=== PATIENT | female | born 1965 | race African-American/Black ===

== ENCOUNTER 2019-07-26 05:17 | Emergency (ER) | payer OTHER ==
[~2019-07-26] VITALS: Ht 170.2 cm; Wt 100.0 kg
[2019-07-26] MEDS ORDERED: SODIUM CHLORIDE 0.9% 1,000 ML IV ONE (07:05)
[2019-07-26] MEDS ORDERED: MORPHINE SULFATE 4 MG/ML CPJ (NOT FOR IM USE) IV STA (07:05)
[2019-07-26] MEDS ORDERED: ONDANSETRON HCL 4MG/2ML INJ IV STA (07:05)
[2019-07-26 07:54] LABS: BASOPHILS % 0.8 % (0.0-2.0); EOSINOPHILS % 0.9 % (0.0-5.0); HEMATOCRIT. 38.8 % (36.0-48.0); LYMPHOCYTES % 22.8 % (20.0-50.0); MEAN CORPUSCULAR HEMOGLOBIN 22.8 pg (28.0-32.0); MEAN CORPUSCULAR VOLUME 68.3 fL (81.0-99.0); MEAN PLATELET VOLUME 9.7 fl (7.4-10.4); MONOCYTES % 5.6 % (2.0-8.0); NEUTROPHILS % 69.9 % (40.0-76.0); PLATELET 194 x1000/uL (130-400); RED BLOOD CELL COUNT 5.68 mill/uL (4.2-5.4)
[2019-07-26 07:58] LABS: CHLORIDE 108 mEq/L (98-107)
[2019-07-26 08:45] LABS: PLATELET ESTIMATE NORMAL
[2019-07-26] MEDS ORDERED: PIPERACILLIN/TAZOBACTAM 3.375GM/50ML PREMIX IV NR (11:11)
[2019-07-26] MEDS ORDERED: MORPHINE SULFATE 4 MG/ML CPJ (NOT FOR IM USE) IV NR (11:11)
[2019-07-26 11:47] LABS: CLARITY URINE CLEAR (CLEAR); COLOR URINE YELLOW (YELLOW); KETONES URINE NEGATIVE (NEGATIVE); LEUKOCYTE ESTERASE URINE NEGATIVE (NEGATIVE); NITRITE URINE NEGATIVE (NEGATIVE); OCCULT BLOOD URINE NEGATIVE (NEGATIVE); PROTEIN URINE TRACE (NEGATIVE); SPECIFIC GRAVITY URINE 1.013 (1.005-1.030); UROBILINOGEN URINE 0.2 E.U./dL (0.2-1.0)
[2019-07-26 15:11] VITALS: BP 134/71
== END 2019-07-26 15:20 | disposition short-term general hospital (02) ==
LOC: ER 05:17 → CANRESERV 11:19 → ENRESERV 11:19 → CANBEDREQ 15:05 → ER 15:20
DX: K57.92 Diverticulitis of intestine, part unspecified, without perforation or abscess without bleeding (principal); D57.00 Hb-SS disease with crisis, unspecified; M79.606 Pain in leg, unspecified; R11.2 Nausea with vomiting, unspecified
CPT/HCPCS: 36415; 74176; 80053; 81003; 83690; 84484; 85025; 93005; 96361; 96365; 96375; 96376; 99285; J2270; J2405; J2543; J7030; Z7610

== ENCOUNTER 2020-05-12 22:19 | Emergency (ER) | payer OTHER ==
[~2020-05-12] VITALS: Ht 172.7 cm; Wt 136.0 kg
[2020-05-12] MEDS ORDERED: SODIUM CHLORIDE 0.9% 1,000 ML IV ONE (23:30)
[2020-05-12] MEDS ORDERED: ONDANSETRON HCL 4MG/2ML INJ IV ONE (23:45)
[2020-05-12] MEDS ORDERED: MORPHINE SULFATE 10 MG/ML CPJ IV ONE (23:45)
[2020-05-13 00:19] LABS: CHLORIDE 106 mEq/L (98-107); PROTHROMBIN TIME 10.3 sec (9.6-11.0)
[2020-05-13 00:21] LABS: CLARITY URINE CLEAR (CLEAR); COLOR URINE YELLOW (YELLOW); KETONES URINE NEGATIVE (NEGATIVE); LEUKOCYTE ESTERASE URINE NEGATIVE (NEGATIVE); NITRITE URINE NEGATIVE (NEGATIVE); OCCULT BLOOD URINE NEGATIVE (NEGATIVE); PROTEIN URINE NEGATIVE (NEGATIVE); SPECIFIC GRAVITY URINE 1.012 (1.005-1.030); UROBILINOGEN URINE 0.2 E.U./dL (0.2-1.0)
[2020-05-13 00:23] LABS: BASOPHILS % 0.5 % (0.0-2.0); EOSINOPHILS % 1.6 % (0.0-5.0); HEMATOCRIT. 33.1 % (36.0-48.0); HEMOGLOBIN. 11.2 g/dL (12.0-16.0); LYMPHOCYTES % 38.8 % (20.0-50.0); MEAN CORPUSCULAR HEMOGLOBIN 25.2 pg (28.0-32.0); MEAN CORPUSCULAR VOLUME 74.4 fL (81.0-99.0); MEAN PLATELET VOLUME 9.6 fl (7.4-10.4); MONOCYTES % 7.9 % (2.0-8.0); NEUTROPHILS % 51.2 % (40.0-76.0); PLATELET 137 x1000/uL (130-400); RED BLOOD CELL COUNT 4.45 mill/uL (4.2-5.4)
[2020-05-13 00:25] LABS: ETHANOL BLOOD < 10 mg/dL
[2020-05-13 00:29] LABS: CREATINE KINASE 81 IU/L (26-192)
[2020-05-13] MEDS ORDERED: KETOROLAC 30MG/ML VIAL IV ONE (01:30)
[2020-05-13 02:20] VITALS: BP 144/76
== END 2020-05-13 02:23 | disposition home or self-care (01) ==
LOC: ER 22:19
DX: D57.00 Hb-SS disease with crisis, unspecified (principal); M79.18 Myalgia, other site; R03.0 Elevated blood-pressure reading, without diagnosis of hypertension; H91.90 Unspecified hearing loss, unspecified ear
CPT/HCPCS: 36415; 71045; 80053; 80320; 81003; 82550; 83690; 83880; 84484; 85025; 85044; 85610; 86850; 86900; 86901; 93005; 96374; 96375; 99285; J1885; J2270; J2405; J7030; G0480

== ENCOUNTER 2020-06-09 22:09 | Emergency (ER) | payer OTHER ==
[~2020-06-09] VITALS: Ht 167.6 cm; Wt 100.0 kg
[2020-06-09 22:19] VITALS: BP 140/90
[2020-06-10] MEDS ORDERED: HYDROCODONE/ACETAMINOPHEN 5/325MG TABLET PO STA (01:30)
[2020-06-10] MEDS ORDERED: KETOROLAC 60MG/2ML VIAL IM STA (01:30)
== END 2020-06-10 02:56 | disposition home or self-care (01) ==
LOC: ER 22:09
DX: M79.18 Myalgia, other site (principal); I10 Essential (primary) hypertension; D57.1 Sickle-cell disease without crisis
CPT/HCPCS: 93005; 96372; 99283; J1885

== ENCOUNTER 2020-10-22 00:31 | Emergency (ER) | payer OTHER ==
[~2020-10-22] VITALS: Ht 172.7 cm; Wt 127.0 kg
[2020-10-22] MEDS ORDERED: KETOROLAC 30MG/ML VIAL IV STA ×2 (02:06→04:58)
[2020-10-22] MEDS ORDERED: SODIUM CHLORIDE 0.9% 1,000 ML IV ONE ×2 (02:15→03:15)
[2020-10-22 02:28] LABS: BASOPHILS % 0.3 % (0.0-2.0); EOSINOPHILS % 3.7 % (0.0-5.0); HEMOGLOBIN. 11.9 g/dL (12.0-16.0); LYMPHOCYTES % 39.1 % (20.0-50.0); MEAN CORPUSCULAR HEMOGLOBIN 25.1 pg (28.0-32.0); MEAN CORPUSCULAR VOLUME 76.4 fL (81.0-99.0); MEAN PLATELET VOLUME 10.1 fl (7.4-10.4); NEUTROPHILS % 50.9 % (40.0-76.0); PLATELET 151 x1000/uL (130-400); RED BLOOD CELL COUNT 4.72 mill/uL (4.2-5.4); RED CELL DISTRIBUTION WIDTH 15.8 % (11.6-14.6)
[2020-10-22 02:33] LABS: CHLORIDE 102 mEq/L (98-107)
[2020-10-22 02:36] LABS: ETHANOL BLOOD < 10 mg/dL
[2020-10-22 02:37] LABS: PROTHROMBIN TIME 10.7 sec (9.6-11.0)
[2020-10-22] MEDS ORDERED: MORPHINE SULFATE 4 MG/ML CPJ (NOT FOR IM USE) IV STA (03:08)
[2020-10-22 04:01] LABS: CLARITY URINE CLEAR (CLEAR); COLOR URINE YELLOW (YELLOW); KETONES URINE NEGATIVE (NEGATIVE); LEUKOCYTE ESTERASE URINE NEGATIVE (NEGATIVE); NITRITE URINE NEGATIVE (NEGATIVE); OCCULT BLOOD URINE NEGATIVE (NEGATIVE); PH URINE 6.5 (4.5-8.0); PROTEIN URINE NEGATIVE (NEGATIVE)
[2020-10-22 04:10] LABS: *AMPHETAMINES SCREEN URINE NEGATIVE (NEGATIVE); *BARBITURATES SCREEN URINE NEGATIVE (NEGATIVE); *BENZODIAZEPINES SCREEN URINE NEGATIVE (NEGATIVE); *COCAINE SCREEN URINE NEGATIVE (NEGATIVE); METHADONE URINE SCREEN NEGATIVE (NEGATIVE)
[2020-10-22 04:11] LABS: CANNABINOID URINE SCREEN NEGATIVE (NEGATIVE); OPIATES URINE SCREEN PRESUMTIVE POSITIVE (NEGATIVE); PHENCYCLIDINE URINE SCREEN NEGATIVE (NEGATIVE)
[2020-10-22] MEDS ORDERED: HYDR-4346 PO (04:24)
[2020-10-22] MEDS ORDERED: NAPR-681 PO (04:24)
[2020-10-22 05:11] VITALS: BP 123/77
== END 2020-10-22 05:22 | disposition home or self-care (01) ==
LOC: ER 00:31
DX: M60.9 Myositis, unspecified (principal); D57.1 Sickle-cell disease without crisis; I10 Essential (primary) hypertension
CPT/HCPCS: 36415; 71045; 80053; 80305; 80320; 81003; 85025; 85044; 85610; 93005; 96374; 96375; 96376; 99285; J1885; J2270; J7030; Z7610; G0480

== ENCOUNTER 2021-03-08 00:28 | Emergency (ER) | payer OTHER ==
[~2021-03-08] VITALS: Ht 170.2 cm; Wt 78.0 kg
[~2021-03-08 00:28] MED LIST: HYDR-4346 PO; NAPR-681 PO
[2021-03-08] MEDS ORDERED: ONDANSETRON HCL 4MG/2ML INJ IV STA (01:40)
[2021-03-08] MEDS ORDERED: MORPHINE SULFATE 4 MG/ML CPJ (NOT FOR IM USE) IV STA (01:40)
[2021-03-08] MEDS ORDERED: SODIUM CHLORIDE 0.9% 1,000 ML IV ONE (01:45)
[2021-03-08 02:17] LABS: BASOPHILS % 0.7 % (0.0-2.0); EOSINOPHILS % 3.2 % (0.0-5.0); HEMATOCRIT. 32.6 % (36.0-48.0); HEMOGLOBIN. 10.8 g/dL (12.0-16.0); LYMPHOCYTES % 39.9 % (20.0-50.0); MEAN CORPUSCULAR VOLUME 75.1 fL (81.0-99.0); MEAN PLATELET VOLUME 9.4 fl (7.4-10.4); MONOCYTES % 6.1 % (2.0-8.0); NEUTROPHILS % 50.1 % (40.0-76.0); PLATELET 171 x1000/uL (130-400); RED BLOOD CELL COUNT 4.34 mill/uL (4.2-5.4); RED CELL DISTRIBUTION WIDTH 15.8 % (11.6-14.6)
[2021-03-08 02:21] LABS: CHLORIDE 109 mEq/L (98-107)
[2021-03-08 02:24] LABS: ETHANOL BLOOD < 10 mg/dL
[2021-03-08] MEDS ORDERED: DIPHENHYDRAMINE 50MG/ML VIAL IV ONE (03:15)
[2021-03-08] MEDS ORDERED: FENTANYL CITRATE/PF 50MCG/ML 2ML VIAL IV ONE (03:15)
[2021-03-08 03:30] LABS: CLARITY URINE CLEAR (CLEAR); COLOR URINE YELLOW (YELLOW); KETONES URINE NEGATIVE (NEGATIVE); LEUKOCYTE ESTERASE URINE NEGATIVE (NEGATIVE); NITRITE URINE NEGATIVE (NEGATIVE); OCCULT BLOOD URINE NEGATIVE (NEGATIVE); PH URINE 7.5 (4.5-8.0); PROTEIN URINE NEGATIVE (NEGATIVE); SPECIFIC GRAVITY URINE 1.007 (1.005-1.030); UROBILINOGEN URINE 0.2 E.U./dL (0.2-1.0)
[2021-03-08 04:27] LABS: METHADONE URINE SCREEN NEGATIVE (NEGATIVE); OPIATES URINE SCREEN NEGATIVE (NEGATIVE)
[2021-03-08 04:28] LABS: *AMPHETAMINES SCREEN URINE NEGATIVE (NEGATIVE); *BARBITURATES SCREEN URINE NEGATIVE (NEGATIVE); *BENZODIAZEPINES SCREEN URINE NEGATIVE (NEGATIVE); *COCAINE SCREEN URINE NEGATIVE (NEGATIVE); CANNABINOID URINE SCREEN NEGATIVE (NEGATIVE); PHENCYCLIDINE URINE SCREEN NEGATIVE (NEGATIVE)
[2021-03-08 05:23] VITALS: BP 111/71
== END 2021-03-08 06:00 | disposition home or self-care (01) ==
LOC: ER 00:28
DX: D57.00 Hb-SS disease with crisis, unspecified (principal); E11.9 Type 2 diabetes mellitus without complications; I10 Essential (primary) hypertension; Z91.041 Radiographic dye allergy status
CPT/HCPCS: 36415; 71045; 80053; 80305; 80320; 81003; 83605; 84484; 85025; 85044; 86850; 86900; 86901; 87040; 93005; 96361; 96374; 96375; 99285; J1200; J2270; J2405; J3010; J7030; G0480

== ENCOUNTER 2021-04-06 23:51 | Emergency (ER) | payer OTHER ==
[~2021-04-06] VITALS: Ht 170.2 cm; Wt 100.0 kg
[2021-04-07] VITALS: BP 159/84
[2021-04-07] MEDS ORDERED: ONDANSETRON HCL 4MG/2ML INJ IV STA (02:13)
[2021-04-07 03:00] LABS: CLARITY URINE CLEAR (CLEAR); COLOR URINE YELLOW (YELLOW); KETONES URINE NEGATIVE (NEGATIVE); LEUKOCYTE ESTERASE URINE NEGATIVE (NEGATIVE); NITRITE URINE NEGATIVE (NEGATIVE); OCCULT BLOOD URINE NEGATIVE (NEGATIVE); PH URINE 5.5 (4.5-8.0); PROTEIN URINE NEGATIVE (NEGATIVE)
[2021-04-07 03:09] LABS: CHLORIDE 108 mEq/L (98-107)
[2021-04-07 03:11] LABS: BASOPHILS % 0.9 % (0.0-2.0); EOSINOPHILS % 1.6 % (0.0-5.0); HEMATOCRIT. 35.1 % (36.0-48.0); HEMOGLOBIN. 11.9 g/dL (12.0-16.0); LYMPHOCYTES % 40.8 % (20.0-50.0); MEAN CORPUSCULAR HEMOGLOBIN 25.1 pg (28.0-32.0); MEAN PLATELET VOLUME 9.4 fl (7.4-10.4); MONOCYTES % 4.9 % (2.0-8.0); NEUTROPHILS % 51.8 % (40.0-76.0); PLATELET 163 x1000/uL (130-400); RED BLOOD CELL COUNT 4.73 mill/uL (4.2-5.4); RED CELL DISTRIBUTION WIDTH 15.9 % (11.6-14.6)
[2021-04-07 03:13] LABS: ETHANOL BLOOD < 10 mg/dL
== END 2021-04-07 04:10 | disposition home or self-care (01) ==
LOC: ER 23:51
DX: M79.18 Myalgia, other site (principal); R11.2 Nausea with vomiting, unspecified; F32.9 Major depressive disorder, single episode, unspecified; E11.9 Type 2 diabetes mellitus without complications; Z88.5 Allergy status to narcotic agent
CPT/HCPCS: 36415; 71045; 80053; 80320; 81003; 83690; 84484; 85025; 85044; 96374; 99284; J2405; G0480

== ENCOUNTER 2021-09-14 00:28 | Emergency (ER) | payer OTHER ==
[~2021-09-14] VITALS: Ht 170.2 cm; Wt 105.0 kg
[~2021-09-14 00:28] MED LIST changes: +ABIL10 PO; +AMLO10TA4 PO; +DULO60CA64 PO; +FERR-71 PO; +GABA-532 PO; +HYDR500C18 PO; +METF-416 PO; +TRAZ-252 PO
[2021-09-14] MEDS ORDERED: SODIUM CHLORIDE 0.9% 1,000 ML IV ONE (01:30)
[2021-09-14] MEDS ORDERED: DIPHENHYDRAMINE 50MG/ML VIAL IV ONE (01:30)
[2021-09-14] MEDS ORDERED: MORPHINE SULFATE 4 MG/ML CPJ (NOT FOR IM USE) IV STA (01:30)
[2021-09-14] MEDS ORDERED: ONDANSETRON HCL 4MG/2ML INJ IV ONE (03:15)
[2021-09-14 03:26] LABS: CHLORIDE 108 mEq/L (98-107)
[2021-09-14 03:29] LABS: BASOPHILS % 0.7 % (0.0-2.0); EOSINOPHILS % 2.6 % (0.0-5.0); HEMATOCRIT. 31.8 % (36.0-48.0); HEMOGLOBIN. 10.8 g/dL (12.0-16.0); LYMPHOCYTES % 43.7 % (20.0-50.0); MEAN CORPUSCULAR VOLUME 73.7 fL (81.0-99.0); MEAN PLATELET VOLUME 9.4 fl (7.4-10.4); MONOCYTES % 6.1 % (2.0-8.0); NEUTROPHILS % 46.9 % (40.0-76.0); PLATELET 147 x1000/uL (130-400); RED BLOOD CELL COUNT 4.31 mill/uL (4.2-5.4); RED CELL DISTRIBUTION WIDTH 16.2 % (11.6-14.6)
[2021-09-14 04:05] VITALS: BP 139/87
== END 2021-09-14 05:25 | disposition home or self-care (01) ==
LOC: ER 00:28
DX: D57.09 Hb-SS disease with crisis with other specified complication (principal); M79.605 Pain in left leg; M79.604 Pain in right leg; I10 Essential (primary) hypertension; E11.9 Type 2 diabetes mellitus without complications; Z79.84 Long term (current) use of oral hypoglycemic drugs; Z79.899 Other long term (current) drug therapy
CPT/HCPCS: 36415; 71045; 80053; 85025; 85044; 93005; 96361; 96374; 96375; 99285; J1200; J2270; J2405; J7030

== ENCOUNTER 2021-12-24 01:04 | Emergency (ER) | payer OTHER ==
[~2021-12-24] VITALS: Ht 167.6 cm; Wt 94.0 kg
[2021-12-24] MEDS ORDERED: SODIUM CHLORIDE 0.9% 1,000 ML IV ONE (02:45)
[2021-12-24] MEDS ORDERED: MORPHINE SULFATE 4 MG/ML CPJ (NOT FOR IM USE) IV ONE (02:45)
[2021-12-24] MEDS ORDERED: ACETAMINOPHEN 325MG TABLET PO ONE (02:45)
[2021-12-24] MEDS ORDERED: IBUPROFEN 400MG TABLET PO ONE (02:45)
[2021-12-24 03:07] LABS: BASOPHILS % 0.3 % (0.0-2.0); EOSINOPHILS % 3.3 % (0.0-5.0); HEMATOCRIT. 31.3 % (36.0-48.0); HEMOGLOBIN. 10.4 g/dL (12.0-16.0); LYMPHOCYTES % 36.9 % (20.0-50.0); MEAN CORPUSCULAR HEMOGLOBIN 24.3 pg (28.0-32.0); MEAN PLATELET VOLUME 9.3 fl (7.4-10.4); MONOCYTES % 6.3 % (2.0-8.0); NEUTROPHILS % 53.2 % (40.0-76.0); PLATELET 155 x1000/uL (130-400); RED BLOOD CELL COUNT 4.28 mill/uL (4.2-5.4); RED CELL DISTRIBUTION WIDTH 16.1 % (11.6-14.6)
[2021-12-24 03:16] LABS: CHLORIDE 108 mEq/L (98-107)
[2021-12-24] MEDS ORDERED: ONDANSETRON HCL 4MG/2ML INJ IV ONE (03:30)
[2021-12-24 05:29] LABS: CLARITY URINE CLEAR (CLEAR); COLOR URINE YELLOW (YELLOW); KETONES URINE NEGATIVE (NEGATIVE); LEUKOCYTE ESTERASE URINE NEGATIVE (NEGATIVE); NITRITE URINE NEGATIVE (NEGATIVE); OCCULT BLOOD URINE NEGATIVE (NEGATIVE); PH URINE 5.5 (4.5-8.0); PROTEIN URINE NEGATIVE (NEGATIVE); SPECIFIC GRAVITY URINE 1.007 (1.005-1.030); UROBILINOGEN URINE 0.2 E.U./dL (0.2-1.0)
[2021-12-24] MEDS ORDERED: HYDROCODONE/ACETAMINOPHEN 5/325MG TABLET PO ONE (06:30)
[2021-12-24 15:08] VITALS: BP 141/72
== END 2021-12-25 09:17 | disposition short-term general hospital (02) ==
LOC: ER 01:04 → CANBEDREQ 21:17 → ER 12-25 09:17
DX: D57.00 Hb-SS disease with crisis, unspecified (principal); E11.9 Type 2 diabetes mellitus without complications; I10 Essential (primary) hypertension; Z79.899 Other long term (current) drug therapy; Z20.822 Contact with and (suspected) exposure to COVID-19
CPT/HCPCS: 36415; 71045; 80053; 81003; 83605; 83690; 83880; 84484; 85025; 85044; 87426; 93005; 96361; 96374; 96375; 99285; C9803; J2270; J2405; J7030

== ENCOUNTER 2022-04-12 18:48 | Emergency (ER) | payer OTHER ==
[~2022-04-12] VITALS: Ht 170.2 cm; Wt 127.0 kg
[2022-04-12] MEDS ORDERED: SODIUM CHLORIDE 0.9% 1,000 ML IV ONE (21:30)
[2022-04-12 21:36] LABS: BASOPHILS % 0.3 % (0.0-2.0); EOSINOPHILS % 1.7 % (0.0-5.0); HEMATOCRIT. 34.6 % (36.0-48.0); HEMOGLOBIN. 11.3 g/dL (12.0-16.0); LYMPHOCYTES % 41.5 % (20.0-50.0); MEAN CORPUSCULAR HEMOGLOBIN 26.6 pg (28.0-32.0); MEAN CORPUSCULAR VOLUME 81.6 fL (81.0-99.0); MEAN PLATELET VOLUME 9.2 fl (7.4-10.4); MONOCYTES % 6.9 % (2.0-8.0); NEUTROPHILS % 49.6 % (40.0-76.0); PLATELET 134 x1000/uL (130-400); RED BLOOD CELL COUNT 4.24 mill/uL (4.2-5.4); RED CELL DISTRIBUTION WIDTH 16.5 % (11.6-14.6)
[2022-04-12 21:44] LABS: CHLORIDE 110 mEq/L (98-107)
[2022-04-12 21:59] LABS: HCG SCREEN NEGATIVE
[2022-04-12] MEDS ORDERED: ACETAMINOPHEN 325MG TABLET PO ONE (22:00)
[2022-04-12] MEDS ORDERED: KETOROLAC 15MG/ML VIAL IV ONE ×2 (22:00→23:45)
[2022-04-12] MEDS ORDERED: HYDROMORPHONE HCL/PF 2MG/ML CPJ IV ONE ×2 (22:00→23:45)
[2022-04-12] MEDS ORDERED: DIPHENHYDRAMINE 25MG CAPSULE PO ONE (22:00)
[2022-04-13] MEDS ORDERED: HYDROMORPHONE HCL/PF 2MG/ML CPJ IV NR (03:30)
[2022-04-13] MEDS ORDERED: FENTANYL CITRATE/PF 50MCG/ML 2ML VIAL IV ONE (06:15)
[2022-04-13 11:45] VITALS: BP 151/80
== END 2022-04-13 12:09 | disposition short-term general hospital (02) ==
LOC: ER 18:48
DX: D57.09 Hb-SS disease with crisis with other specified complication (principal); M79.605 Pain in left leg; M79.604 Pain in right leg; I10 Essential (primary) hypertension; E11.9 Type 2 diabetes mellitus without complications; H91.90 Unspecified hearing loss, unspecified ear; Z79.899 Other long term (current) drug therapy; Z79.84 Long term (current) use of oral hypoglycemic drugs
CPT/HCPCS: 36415; 71045; 80053; 84703; 85025; 85044; 93005; 93970; 96361; 96374; 96375; 96376; 99285; J1170; J1885; J3010; J7030; Q0163

== ENCOUNTER 2022-08-13 14:49 | Emergency (ER) | payer OTHER ==
[~2022-08-13] VITALS: Ht 170.2 cm; Wt 122.0 kg
[2022-08-13] MEDS ORDERED: ONDANSETRON HCL 4MG/2ML INJ IV STA (18:22)
[2022-08-13] MEDS ORDERED: KETOROLAC 30MG/ML VIAL IV STA (18:22)
[2022-08-13 18:43] LABS: BASOPHILS % 0.3 % (0.0-2.0); EOSINOPHILS % 0.3 % (0.0-5.0); HEMATOCRIT. 32.8 % (36.0-48.0); LYMPHOCYTES % 31.7 % (20.0-50.0); MEAN CORPUSCULAR VOLUME 77.6 fL (81.0-99.0); MEAN PLATELET VOLUME 8.3 fl (7.4-10.4); MONOCYTES % 6.3 % (2.0-8.0); NEUTROPHILS % 61.4 % (40.0-76.0); PLATELET 198 x1000/uL (130-400); RED BLOOD CELL COUNT 4.23 mill/uL (4.2-5.4); RED CELL DISTRIBUTION WIDTH 16.2 % (11.6-14.6)
[2022-08-13 18:51] LABS: CHLORIDE 106 mEq/L (98-107)
[2022-08-13 19:16] VITALS: BP 110/78
[2022-08-13] MEDS ORDERED: LEVOFLOXACIN 750MG PREMIX 150 ML IV ONE (19:30)
[2022-08-13 20:19] LABS: CLARITY URINE CLEAR (CLEAR); COLOR URINE YELLOW (YELLOW); KETONES URINE NEGATIVE (NEGATIVE); LEUKOCYTE ESTERASE URINE NEGATIVE (NEGATIVE); NITRITE URINE NEGATIVE (NEGATIVE); OCCULT BLOOD URINE NEGATIVE (NEGATIVE); PROTEIN URINE NEGATIVE (NEGATIVE); SPECIFIC GRAVITY URINE 1.013 (1.005-1.030); UROBILINOGEN URINE 0.2 E.U./dL (0.2-1.0)
[2022-08-13 20:29] LABS: *AMPHETAMINES SCREEN URINE NEGATIVE (NEGATIVE); *BARBITURATES SCREEN URINE NEGATIVE (NEGATIVE); *BENZODIAZEPINES SCREEN URINE NEGATIVE (NEGATIVE); *COCAINE SCREEN URINE NEGATIVE (NEGATIVE); CANNABINOID URINE SCREEN NEGATIVE (NEGATIVE); METHADONE URINE SCREEN NEGATIVE (NEGATIVE); OPIATES URINE SCREEN PRESUMTIVE POSITIVE (NEGATIVE); PHENCYCLIDINE URINE SCREEN NEGATIVE (NEGATIVE)
[2022-08-13] MEDS ORDERED: LEVO750T68 MT (21:40)
== END 2022-08-13 21:50 | disposition home or self-care (01) ==
LOC: ER 15:11
DX: J18.9 Pneumonia, unspecified organism (principal); R11.2 Nausea with vomiting, unspecified; R19.7 Diarrhea, unspecified; F31.9 Bipolar disorder, unspecified; E11.9 Type 2 diabetes mellitus without complications; I10 Essential (primary) hypertension; Z79.899 Other long term (current) drug therapy; Z88.5 Allergy status to narcotic agent
CPT/HCPCS: 36415; 71045; 74176; 80053; 80305; 81003; 83690; 85025; 93005; 96365; 96375; 99285; J1885; J1956; J2405; Z7610

== ENCOUNTER 2022-10-31 01:22 | Emergency (ER) | payer OTHER ==
[~2022-10-31] VITALS: Ht 172.7 cm; Wt 90.1 kg
[~2022-10-31 01:22] MED LIST changes: +LEVO750T68 MT
[2022-10-31] MEDS ORDERED: MORPHINE SULFATE 4 MG/ML CPJ (NOT FOR IM USE) IV ONE (03:00)
[2022-10-31] MEDS ORDERED: SODIUM CHLORIDE 0.9% 1,000 ML IV ONE (03:00)
[2022-10-31 03:10] LABS: BASOPHILS % 0.3 % (0.0-2.0); EOSINOPHILS % 1.5 % (0.0-5.0); HEMATOCRIT. 26.5 % (36.0-48.0); LYMPHOCYTES % 55.7 % (20.0-50.0); MEAN CORPUSCULAR HEMOGLOBIN 28.3 pg (28.0-32.0); MEAN CORPUSCULAR VOLUME 83.3 fL (81.0-99.0); MEAN PLATELET VOLUME 8.2 fl (7.4-10.4); MONOCYTES % 6.4 % (2.0-8.0); NEUTROPHILS % 36.1 % (40.0-76.0); PLATELET 165 x1000/uL (130-400); RED BLOOD CELL COUNT 3.19 mill/uL (4.2-5.4); RED CELL DISTRIBUTION WIDTH 18.5 % (11.6-14.6)
[2022-10-31 03:17] LABS: CHLORIDE 110 mEq/L (98-107)
[2022-10-31] MEDS ORDERED: OXYCODONE HCL/ACETAMINOPHEN 5/325MG TABLET PO ONE (06:30)
[2022-10-31 06:44] VITALS: BP 132/67
== END 2022-10-31 06:46 | disposition home or self-care (01) ==
LOC: ER 01:22
DX: D57.1 Sickle-cell disease without crisis (principal); F31.9 Bipolar disorder, unspecified; E11.9 Type 2 diabetes mellitus without complications; I10 Essential (primary) hypertension; Z79.84 Long term (current) use of oral hypoglycemic drugs; Z88.8 Allergy status to other drugs, medicaments and biological substances; Z88.5 Allergy status to narcotic agent
CPT/HCPCS: 36415; 80053; 83615; 85025; 85044; 96374; 99283; J2270; Z7610

== ENCOUNTER 2023-03-26 16:39 | Emergency (ER) | payer OTHER ==
[~2023-03-26] VITALS: Ht 172.7 cm; Wt 104.5 kg
[2023-03-26 16:55] VITALS: TEMP 98.1; O2SAT 98
[2023-03-26 17:30] VITALS: BP 144/77; PULSE 84; RESP 16
[2023-03-26] MEDS ORDERED: KETOROLAC 30MG/ML VIAL IM ONE (17:30)
[2023-03-26] MEDS ORDERED: NAPR-1176 MT (18:35)
== END 2023-03-26 19:02 | disposition home or self-care (01) ==
LOC: ER 16:39
DX: G89.29 Other chronic pain (principal); M79.604 Pain in right leg; M79.605 Pain in left leg; F31.9 Bipolar disorder, unspecified; E11.9 Type 2 diabetes mellitus without complications; I10 Essential (primary) hypertension; D57.1 Sickle-cell disease without crisis; Z91.040 Latex allergy status; Z88.5 Allergy status to narcotic agent
CPT/HCPCS: 99283; 96372; J1885

== ENCOUNTER 2023-09-24 19:13 | Emergency (ER) | payer MEDICAID ==
[~2023-09-24] VITALS: Ht 167.6 cm; Wt 113.0 kg
[~2023-09-24 19:13] MED LIST changes: -LEVO750T68 MT; +NAPR-1176 MT
[2023-09-24 20:31] LABS: BASOPHILS % 0.4 % (0.0-2.0); DIFFERENTIAL COMMENT 0; EOSINOPHILS % 1.3 % (0.0-5.0); HEMATOCRIT. 31.1 % (36.0-48.0); HEMOGLOBIN. 10.4 g/dL (12.0-16.0); LYMPHOCYTES % 46.2 % (20.0-50.0); MEAN CORPUSCULAR HGB CONC 33.3 g/dL (31.0-37.0); MEAN PLATELET VOLUME 8.9 fl (7.4-10.4); MONOCYTES % 7.4 % (2.0-8.0); NEUTROPHILS % 44.7 % (40.0-76.0); PLATELET 182 x1000/uL (130-400); RED BLOOD CELL COUNT 4.32 mill/uL (4.2-5.4); RED CELL DISTRIBUTION WIDTH 18.8 % (11.6-14.6); WHITE BLOOD COUNT 6.5 x1000/uL (4.5-11.0)
[2023-09-24 20:40] LABS: PARTIAL THROMBOPLASTIN TIME 23.9 sec (23.4-31.0); PROTHROMBIN TIME 10.9 sec (9.6-11.0)
[2023-09-24 20:43] LABS: ALANINE AMINOTRANSFERASE 9 IU/L (10-49); ALBUMIN 4.3 g/dL (3.2-4.8); ASPARTATE AMINOTRANSFERASE 17 IU/L (<34); BILIRUBIN TOTAL 0.7 mg/dL (0.1-1.0); CARBON DIOXIDE 28 mEq/L (21-32); CHLORIDE 108 mEq/L (98-107); CREATININE 1.2 mg/dL (0.6-1.0); GLUCOSE 94 mg/dL (70-105); POTASSIUM 4.1 mEq/L (3.5-5.1); PROTEIN TOTAL 7.7 g/dL (6.0-8.3); SODIUM 140 mEq/L (136-145); TROPONIN I HIGH SENSITIVITY < 4 ng/L (3.0-34); UREA NITROGEN BLOOD 10 mg/dL (9-23)
[2023-09-24 21:36] VITALS: PULSE 92; RESP 16; O2SAT 98
[2023-09-24] MEDS: IPRATROPIUM/ALBUTEROL 0.5-3(2.5)MG/3ML NEB HHN ONE (21:36)
[2023-09-24 21:48] LABS: *AMPHETAMINES SCREEN URINE NEGATIVE (NEGATIVE); *BARBITURATES SCREEN URINE NEGATIVE (NEGATIVE); *BENZODIAZEPINES SCREEN URINE NEGATIVE (NEGATIVE); *COCAINE SCREEN URINE NEGATIVE (NEGATIVE); CANNABINOID URINE SCREEN NEGATIVE (NEGATIVE); ECSTASY MDMA SCREEN URINE NEGATIVE (NEGATIVE); METHADONE URINE SCREEN Neg (NEGATIVE); OPIATES URINE SCREEN PRESUMPTIVE POSITIVE (NEGATIVE); PHENCYCLIDINE URINE SCREEN NEGATIVE (NEGATIVE)
[2023-09-24] MEDS: MORPHINE SULFATE 4 MG/ML INJ (FOR IV/IM USE) IV ONE ×2 (22:05→23:15)
[2023-09-24] MEDS: SODIUM CHLORIDE 0.9% 1,000 ML IV ONE (22:11)
[2023-09-24 22:12] VITALS: TEMP 99
[2023-09-24 23:13] LABS: TROPONIN I HIGH SENSITIVITY 4 ng/L (3.0-34)
[2023-09-25 00:33] VITALS: BP 143/65; PULSE 59; RESP 21
== END 2023-09-25 00:40 | disposition home or self-care (01) ==
LOC: ER 19:13
DX: D57.00 Hb-SS disease with crisis, unspecified (principal); E11.9 Type 2 diabetes mellitus without complications; I10 Essential (primary) hypertension; Z79.899 Other long term (current) drug therapy; Z20.822 Contact with and (suspected) exposure to COVID-19
CPT/HCPCS: 80053; 80305; 83880; 83605; 85025; 85044; 85610; 85730; 87040; 84484; 36415; 84145; 71045; 94640; 93005; 96361; 96374; 96376; 99285; 87426; J2270; Z7610 ×4; J7030

== ENCOUNTER 2024-03-08 00:35 | Inpatient (IN) | payer MEDICAID, OTHER ==
[~2024-03-08] VITALS: Ht 170.2 cm; Wt 100.7 kg
[2024-03-08] MEDS ORDERED: MORPHINE SULFATE 4 MG/ML INJ (FOR IV/IM USE) IV STA (00:53)
[2024-03-08 02:19] LABS: BASOPHILS % 0.4 % (0.0-2.0); DIFFERENTIAL COMMENT 0; EOSINOPHILS % 2.5 % (0.0-5.0); HEMATOCRIT. 32.6 % (36.0-48.0); HEMOGLOBIN. 10.8 g/dL (12.0-16.0); LYMPHOCYTES % 35.9 % (20.0-50.0); MEAN CORPUSCULAR HEMOGLOBIN 25.5 pg (28.0-32.0); MEAN CORPUSCULAR HGB CONC 33.2 g/dL (31.0-37.0); MEAN CORPUSCULAR VOLUME 76.7 fL (81.0-99.0); MEAN PLATELET VOLUME 9.1 fl (7.4-10.4); MONOCYTES % 7.5 % (2.0-8.0); NEUTROPHILS % 53.7 % (40.0-76.0); PLATELET 150 x1000/uL (130-400); RED BLOOD CELL COUNT 4.25 mill/uL (4.2-5.4); RED CELL DISTRIBUTION WIDTH 15.9 % (11.6-14.6); WHITE BLOOD COUNT 6.9 x1000/uL (4.5-11.0)
[2024-03-08 02:29] LABS: INR 0.9; PROTHROMBIN TIME 10.6 sec (9.6-11.0)
[2024-03-08 02:32] LABS: CHLORIDE 108 mEq/L (98-107); SODIUM 140 mEq/L (136-145)
[2024-03-08 02:33] LABS: CALCIUM 9.7 mg/dL (8.7-10.4); CARBON DIOXIDE 29 mEq/L (21-32)
[2024-03-08 02:38] LABS: CREATININE 1.2 mg/dL (0.6-1.0); GLUCOSE 111 mg/dL (70-105); UREA NITROGEN BLOOD 9 mg/dL (9-23)
[2024-03-08 02:40] LABS: ALANINE AMINOTRANSFERASE 14 IU/L (10-49); ALBUMIN 4.2 g/dL (3.2-4.8); ASPARTATE AMINOTRANSFERASE 16 IU/L (<34); BILIRUBIN DIRECT 0.3 mg/dL (<=3.0); BILIRUBIN TOTAL 0.8 mg/dL (0.1-1.0)
[2024-03-08] MEDS: ONDANSETRON HCL 4MG/2ML INJ IV NR (02:45)
[2024-03-08 03:31] LABS: ETHANOL BLOOD < 10 mg/dL (<10)
[2024-03-08] MEDS: MORPHINE SULFATE 4 MG/ML INJ (FOR IV/IM USE) IV NR (03:50)
[2024-03-08] MEDS: ONDANSETRON HCL 4MG/2ML INJ IV STA (03:51)
[2024-03-08] MEDS: SODIUM CHLORIDE 0.9% 1,000 ML IV ONE (03:51)
[2024-03-08] MEDS: ACETAMINOPHEN 1000MG/100ML 100 ML IV ONE (03:55)
[2024-03-08 05:04] LABS: *AMPHETAMINES SCREEN URINE NEGATIVE (NEGATIVE); *BARBITURATES SCREEN URINE NEGATIVE (NEGATIVE); *BENZODIAZEPINES SCREEN URINE NEGATIVE (NEGATIVE); *COCAINE SCREEN URINE NEGATIVE (NEGATIVE); METHADONE URINE SCREEN NEGATIVE (NEGATIVE); OPIATES URINE SCREEN NEGATIVE (NEGATIVE)
[2024-03-08 05:05] LABS: CANNABINOID URINE SCREEN NEGATIVE (NEGATIVE); ECSTASY MDMA SCREEN URINE NEGATIVE (NEGATIVE); PHENCYCLIDINE URINE SCREEN NEGATIVE (NEGATIVE)
[2024-03-08] MEDS: MORPHINE SULFATE 4 MG/ML INJ (FOR IV/IM USE) IV ONE ×2 (05:15→06:45)
[2024-03-08 05:36] LABS: CLARITY URINE CLEAR (CLEAR); COLOR URINE YELLOW (YELLOW)
[2024-03-08 05:37] LABS: GLUCOSE URINE NEGATIVE (NEGATIVE); KETONES URINE NEGATIVE (NEGATIVE); NITRITE URINE NEGATIVE (NEGATIVE); OCCULT BLOOD URINE NEGATIVE (NEGATIVE); PROTEIN URINE NEGATIVE (NEGATIVE); UROBILINOGEN URINE 0.2 E.U./dL (0.2-1.0)
[2024-03-08 05:38] LABS: LEUKOCYTE ESTERASE URINE NEGATIVE (NEGATIVE)
[2024-03-08] MEDS ORDERED: GUAIFENESIN 200MG/10ML SUGAR FREE UDC PO PRN (10:45)
[2024-03-08] MEDS ORDERED: CLONIDINE 0.1MG TABLET PO PRN (10:45)
[2024-03-08] MEDS ORDERED: ACETAMINOPHEN 325MG TABLET PO PRN ×2 (10:45)
[2024-03-08] MEDS ORDERED: IPRATROPIUM/ALBUTEROL 0.5-3(2.5)MG/3ML NEB HHN PRN (10:45)
[2024-03-08] MEDS ORDERED: ONDANSETRON HCL 4MG/2ML INJ IV PRN (10:45)
[2024-03-08] MEDS ORDERED: MAGNESIUM/ALUMINUM HYDROXIDE/SIMETHICONE 30ML UDC PO PRN (10:45)
[2024-03-08] MEDS: ENOXAPARIN 40MG/0.4ML SYR SUBCUT SCH (11:35)
[2024-03-08] MEDS ORDERED: DEXTROSE 50% WATER 50ML SYRINGE IV PRN (11:45)
[2024-03-08] MEDS: BLOOD SUGAR DIAGNOSTIC STRIP TEST SCH (11:45)
[2024-03-08] MEDS: INSULIN LISPRO 100 UNITS/ML SUBCUT SCH (12:15)
[2024-03-08 12:56] VITALS: BP 109/98; PULSE 57; RESP 10; TEMP 36.7516
[2024-03-08 13:00] VITALS: BP 109/98; PULSE 68; RESP 14; TEMP 37.05852; O2SAT 98
[2024-03-08] MEDS: AMLODIPINE 10MG TABLET PO SCH (13:00)
[2024-03-08] MEDS ORDERED: NALOXONE HCL 0.4MG/ML VIAL IV PRN (13:00)
[2024-03-08] MEDS: GABAPENTIN 300MG CAPSULE PO SCH (13:37)
[2024-03-08] MEDS: DULOXETINE HCL 60MG DR CAPSULE PO SCH (13:37)
[2024-03-08] MEDS: HYDROXYUREA 500MG CAPSULE PO SCH (13:52)
[2024-03-08] MEDS ORDERED: LISI-186 PO (15:31)
[2024-03-08] MEDS ORDERED: MSCON15 PO (15:31)
[2024-03-08] MEDS ORDERED: HYDR-4009 PO (15:31)
[2024-03-08] MEDS ORDERED: ARIP5TAB51 PO (15:31)
[2024-03-08 16:00] VITALS: BP 121/73; PULSE 56; RESP 14; TEMP 36.9474; O2SAT 99
[2024-03-08 16:41] LABS: TROPONIN I HIGH SENSITIVITY < 4 ng/L (3.0-34)
[2024-03-08] MEDS: HYDROCODONE/ACETAMINOPHEN 10/325MG TABLET PO PRN (16:42)
[2024-03-08] MEDS: SODIUM CHLORIDE 0.9% 1,000 ML IV SCH (17:00)
[2024-03-08 20:00] VITALS: BP 123/76; PULSE 71; RESP 19; TEMP 36.89184; O2SAT 95
[2024-03-08] MEDS: ENOXAPARIN 30MG/0.3ML SYR SUBCUT SCH (20:46)
[2024-03-08] MEDS: MORPHINE SULFATE 2 MG/ML INJ (NOT FOR IM USE) IV NR (20:47)
[2024-03-09] VITALS (7 sets, daily range): BP systolic 109–121; BP diastolic 67–76; PULSE 71–96; RESP 14–20; TEMP 36.6696–36.89184; O2SAT 94–97
[2024-03-09 00:38] LABS: TROPONIN I HIGH SENSITIVITY < 4 ng/L (3.0-34)
[2024-03-09 05:56] LABS: BASOPHILS % 0.5 % (0.0-2.0); DIFFERENTIAL COMMENT 0; EOSINOPHILS % 3.3 % (0.0-5.0); HEMATOCRIT. 26.8 % (36.0-48.0); HEMOGLOBIN. 8.9 g/dL (12.0-16.0); LYMPHOCYTES % 27.5 % (20.0-50.0); MEAN CORPUSCULAR HEMOGLOBIN 25.4 pg (28.0-32.0); MEAN CORPUSCULAR HGB CONC 33.3 g/dL (31.0-37.0); MEAN CORPUSCULAR VOLUME 76.5 fL (81.0-99.0); MEAN PLATELET VOLUME 9.1 fl (7.4-10.4); MONOCYTES % 8.8 % (2.0-8.0); NEUTROPHILS % 59.9 % (40.0-76.0); PLATELET 87 x1000/uL (130-400); RED CELL DISTRIBUTION WIDTH 15.6 % (11.6-14.6); WHITE BLOOD COUNT 6.6 x1000/uL (4.5-11.0)
[2024-03-09 06:04] LABS: CHLORIDE 108 mEq/L (98-107); POTASSIUM 4.2 mEq/L (3.5-5.1); SODIUM 139 mEq/L (136-145)
[2024-03-09 06:05] LABS: CARBON DIOXIDE 27 mEq/L (21-32)
[2024-03-09 06:10] LABS: CREATININE 1.3 mg/dL (0.6-1.0); GLUCOSE 119 mg/dL (70-105); UREA NITROGEN BLOOD 15 mg/dL (9-23)
[2024-03-09 06:12] LABS: THYROID STIMULATING HORMONE 0.37 uIU/mL (0.55-4.78)
[2024-03-09] MEDS: MORPHINE SULFATE 2 MG/ML INJ (NOT FOR IM USE) IV NR (10:32)
[2024-03-09] MEDS: HYDROCODONE/ACETAMINOPHEN 10/325MG TABLET PO PRN (13:44)
[2024-03-09] MEDS: IPRATROPIUM/ALBUTEROL 0.5-3(2.5)MG/3ML NEB HHN SCH (22:09)
[2024-03-10] VITALS (7 sets, daily range): BP systolic 112–139; BP diastolic 50–93; PULSE 65–92; RESP 14–19; TEMP 36.6696–36.78072; O2SAT 94–100
[2024-03-10 07:30] LABS: CARBON DIOXIDE 27 mEq/L (21-32); CHLORIDE 109 mEq/L (98-107); POTASSIUM 4.1 mEq/L (3.5-5.1); SODIUM 140 mEq/L (136-145)
[2024-03-10 07:31] LABS: CALCIUM 8.8 mg/dL (8.7-10.4)
[2024-03-10 07:36] LABS: CREATININE 1.1 mg/dL (0.6-1.0); GLUCOSE 119 mg/dL (70-105); UREA NITROGEN BLOOD 10 mg/dL (9-23)
[2024-03-10] MEDS: DOCUSATE SODIUM 100MG CAPSULE PO PRN (08:11)
[2024-03-10 08:39] LABS: BASOPHILS % 0.4 % (0.0-2.0); DIFFERENTIAL COMMENT 0; EOSINOPHILS % 2.7 % (0.0-5.0); HEMOGLOBIN. 8.2 g/dL (12.0-16.0); LYMPHOCYTES % 37.4 % (20.0-50.0); MEAN CORPUSCULAR HEMOGLOBIN 25.4 pg (28.0-32.0); MEAN CORPUSCULAR HGB CONC 32.7 g/dL (31.0-37.0); MEAN CORPUSCULAR VOLUME 77.7 fL (81.0-99.0); MEAN PLATELET VOLUME 9.3 fl (7.4-10.4); MONOCYTES % 8.3 % (2.0-8.0); NEUTROPHILS % 51.2 % (40.0-76.0); PLATELET 101 x1000/uL (130-400); RED BLOOD CELL COUNT 3.22 mill/uL (4.2-5.4); RED CELL DISTRIBUTION WIDTH 15.5 % (11.6-14.6); WHITE BLOOD COUNT 4.9 x1000/uL (4.5-11.0)
== END 2024-03-10 15:54 | disposition home or self-care (01) | DRG 662 ==
LOC: ER 01:22 → 5WST 07:11 → 3WST 11:51
PROVIDERS: ADMIT Internal Medicine; ATTEND Internal Medicine
DX: D57.00 Hb-SS disease with crisis, unspecified (principal); E11.9 Type 2 diabetes mellitus without complications; F31.9 Bipolar disorder, unspecified; I10 Essential (primary) hypertension; D50.9 Iron deficiency anemia, unspecified; Z82.49 Family history of ischemic heart disease and other diseases of the circulatory system; Z91.041 Radiographic dye allergy status; Z79.4 Long term (current) use of insulin; J44.9 Chronic obstructive pulmonary disease, unspecified
CPT/HCPCS: 36415; 71045; 80048; 80076; 80305; 80320; 81003; 82962; 83036; 84443; 84484; 85025; 85044; 87426; 93005; 93970; 94640; 99285; J1650; J2270; J2405; J7030; G0480; J0131

== ENCOUNTER 2025-01-19 15:20 | Emergency (ER) | payer MEDICAID, OTHER ==
[~2025-01-19] VITALS: Ht 167.6 cm; Wt 85.0 kg
[~2025-01-19 15:20] MED LIST changes: -ABIL10 PO; +ALBU18HF2 PO; -AMLO10TA4 PO; +AMLO10TA80 PO; +ASPI-1406 PO; +ATEN50TA PO; +ATOR20TA65 PO; +CALC-1305 PO; +CETI10TA6 PO; +CHOL500051 PO; +CYAN-50 PO; +FERR-63 PO; -FERR-71 PO; +FOLI-43 PO; +FOLI0.4T6 PO; -GABA-532 PO; +HYDR-4009 PO; -HYDR-4346 PO; -HYDR500C18 PO; +INSU100I24 SUBCUT; +LIDO35.421 TP; +LIDO700A30 TP; +MAGN400T26 PO; -METF-416 PO; -NAPR-1176 MT; -NAPR-681 PO; +QUET100T34 PO; +QUET50TA PO; +RIBO100T9 PO; +THIA50TA12 PO; +TOLT2TAB18 PO; +TRAM50TA3 PO; +TRAZ-251 PO
[2025-01-19 15:22] VITALS: O2SAT 100
[2025-01-19] MEDS: KETOROLAC 30MG/ML VIAL IV STA (16:04)
[2025-01-19] MEDS: DIPHENHYDRAMINE 50MG/ML VIAL IV ONE (16:15)
[2025-01-19] MEDS: SODIUM CHLORIDE 0.9% 1,000 ML IV ONE (17:16)
[2025-01-19 17:20] LABS: BASOPHILS % 0.5 % (0.0-2.0); EOSINOPHILS % 1.7 % (0.0-5.0); HEMATOCRIT. 32.1 % (36.0-48.0); HEMOGLOBIN. 10.7 g/dL (12.0-16.0); LYMPHOCYTES % 38.3 % (20.0-50.0); MEAN PLATELET VOLUME 9.4 fl (7.4-10.4); MONOCYTES % 8.8 % (2.0-8.0); NEUTROPHILS % 50.7 % (40.0-76.0); PLATELET 160 x1000/uL (130-400); RED BLOOD CELL COUNT 4.35 mill/uL (4.2-5.4); RED CELL DISTRIBUTION WIDTH 15.8 % (11.6-14.6)
[2025-01-19 17:30] LABS: INR 1.0
[2025-01-19 17:33] LABS: CREATININE 1.3 mg/dL (0.6-1.0); UREA NITROGEN BLOOD 8 mg/dL (9-23)
[2025-01-19 17:34] LABS: TROPONIN I HIGH SENSITIVITY < 4 ng/L (3.0-34)
[2025-01-19] MEDS ORDERED: IBUP-2029 MT (18:26)
[2025-01-19 18:41] VITALS: BP 129/70; PULSE 90; RESP 18; TEMP 37.1; O2SAT 100
== END 2025-01-19 18:41 | disposition home or self-care (01) ==
LOC: ER 15:20
DX: D57.00 Hb-SS disease with crisis, unspecified (principal); N17.9 Acute kidney failure, unspecified; E11.9 Type 2 diabetes mellitus without complications; E78.00 Pure hypercholesterolemia, unspecified; I10 Essential (primary) hypertension; Z79.899 Other long term (current) drug therapy; Z88.8 Allergy status to other drugs, medicaments and biological substances
CPT/HCPCS: 80048; 85025; 85044; 85610; 86850; 86900; 86901; 84484; 36415; 71045; 96361; 96374; 96375; 99284; J1200; J1885; J7030; Z7610

== ENCOUNTER 2025-05-06 20:43 | Inpatient (IN) | payer OTHER ==
[~2025-05-06] VITALS: Ht 165.1 cm; Wt 104.3 kg
[~2025-05-06 20:43] MED LIST changes: +IBUP-1455 MT; +LISI-186 MT
[2025-05-06 20:47] VITALS: O2SAT 98
[2025-05-06 21:39] LABS: BASOPHILS % 0.4 % (0.0-2.0); EOSINOPHILS % 3.3 % (0.0-5.0); HEMATOCRIT. 27.7 % (36.0-48.0); HEMOGLOBIN. 9.1 g/dL (12.0-16.0); LYMPHOCYTES % 50.5 % (20.0-50.0); MEAN PLATELET VOLUME 9.1 fl (7.4-10.4); MONOCYTES % 9.2 % (2.0-8.0); NEUTROPHILS % 36.6 % (40.0-76.0); PLATELET 140 x1000/uL (130-400); RED BLOOD CELL COUNT 3.60 mill/uL (4.2-5.4); RED CELL DISTRIBUTION WIDTH 16.2 % (11.6-14.6)
[2025-05-06] MEDS: KETOROLAC 15MG/ML VIAL IM ONE (21:39)
[2025-05-06] MEDS: ACETAMINOPHEN 500MG TABLET PO ONE (21:39)
[2025-05-06 21:56] LABS: CREATININE 1.2 mg/dL (0.6-1.0); TROPONIN I HIGH SENSITIVITY < 4 ng/L (3.0-34); UREA NITROGEN BLOOD 7 mg/dL (9-23)
[2025-05-06 21:58] LABS: ASPARTATE AMINOTRANSFERASE 21 IU/L (<34); BILIRUBIN DIRECT 0.4 mg/dL (<=3.0); BILIRUBIN TOTAL 1.0 mg/dL (0.1-1.0)
[2025-05-06 21:59] LABS: PROTEIN TOTAL 6.7 g/dL (6.0-8.3)
[2025-05-06] MEDS: SODIUM CHLORIDE 0.9% 1,000 ML IV ONE (22:30)
[2025-05-06] MEDS: MORPHINE SULFATE 4 MG/ML INJ (FOR IV/IM USE) IV ONE (23:35)
[2025-05-06] MEDS: ONDANSETRON HCL 4MG/2ML INJ IV ONE (23:35)
[2025-05-07 01:14] LABS: TROPONIN I HIGH SENSITIVITY < 4 ng/L (3.0-34)
[2025-05-07 07:49] VITALS: BP 135/71; PULSE 51; RESP 18; TEMP 36.1956
[2025-05-07 08:13] VITALS: BP 135/71; PULSE 51; RESP 18; TEMP 36.2; O2SAT 100
[2025-05-07] MEDS ORDERED: NALOXONE HCL 0.4MG/ML VIAL IV PRN (08:45)
[2025-05-07] MEDS: HYDROCODONE/ACETAMINOPHEN 10/325MG TABLET PO PRN (09:38)
[2025-05-07] MEDS ORDERED: ONDANSETRON HCL 4MG/2ML INJ IV PRN (10:30)
[2025-05-07 12:00] VITALS: BP 95/45; PULSE 66; RESP 18; TEMP 36.3; O2SAT 96
[2025-05-07] MEDS: FOLIC ACID 1MG TABLET PO SCH (14:30)
[2025-05-07 16:00] VITALS: BP 101/74; PULSE 61; RESP 18; TEMP 36.6; O2SAT 97
[2025-05-07 20:00] VITALS: BP 131/59; PULSE 52; RESP 20; TEMP 36.2; O2SAT 99
[2025-05-08] VITALS: BP 108/47; PULSE 50; RESP 20; TEMP 36.2; O2SAT 97
[2025-05-08 04:00] VITALS: BP 119/51; PULSE 67; RESP 20; TEMP 36.3; O2SAT 98
[2025-05-08] MEDS ORDERED: MORPHINE SULFATE 4 MG/ML INJ (FOR IV/IM USE) IV PRN (06:45)
[2025-05-08 08:00] VITALS: BP 129/56; PULSE 55; RESP 15; TEMP 36.7; O2SAT 95
[2025-05-08 12:00] VITALS: BP 135/69; PULSE 56; RESP 16; TEMP 36.6; O2SAT 96
== END 2025-05-08 14:00 | disposition home or self-care (01) | DRG 662 ==
LOC: ER 20:43 → 6WST 22:58 → EDBEDREQTM 05-07 00:01 → EDBEDREQ 05-07 00:01 → ENRESERV 05-07 05:22
PROVIDERS: ADMIT Internal Medicine; ATTEND Internal Medicine
DX: D57.00 Hb-SS disease with crisis, unspecified (principal); E11.9 Type 2 diabetes mellitus without complications; I10 Essential (primary) hypertension; E66.9 Obesity, unspecified; E78.00 Pure hypercholesterolemia, unspecified; F31.9 Bipolar disorder, unspecified; Z88.6 Allergy status to analgesic agent; Z91.048 Other nonmedicinal substance allergy status; Z82.49 Family history of ischemic heart disease and other diseases of the circulatory system; Z68.38 Body mass index [BMI] 38.0-38.9, adult
CPT/HCPCS: 36415; 71045; 80048; 80076; 83880; 84484; 85025; 93005; 96372; 99285; A4606; J1885; J2270; J2405; J7030